=== PATIENT | male | born 1985 | race Caucasian/White ===

== ENCOUNTER 2017-04-19 11:00 | Emergency (ER) | payer OTHER ==
[2017-04-19] MEDS ORDERED: SODIUM CHLORIDE 1,000 ML IV STA (11:09)
--- NOTE | 2017-04-19 11:15 | PDOC ---
History of Present Illness - General Chief Complaint: Urinary Problem Stated Complaint: DARK URINE Time Seen by Provider: 04/19/17 11:08 - History of Present Illness Initial Comments: 04/19/17 11:29 Chief complaint: Dark urine History of present illness: Patient noticed [employer] colored urine after running a 15 mile race this morning. It was a humid day, and he was hydrating along the way with water. He runs 3 times a week, but much shorter distances. He has run this distance in the past, but has never had discoloration of his urine Review of systems: Denies fever/chills, back pain, dysuria, frequency, urgency, hesitancy, abdominal pain, chest pain, shortness of breath, nausea, vomiting, diarrhea, diaphoresis, testicular/ perineal pain, and remainder systems reviewed and found to be negative Past medical history: Patient is completely healthy, no prior hospitalizations or surgeries, no medication Family history: Father and brother with type 1 diabetes, otherwise negative including early coronary artery disease, metabolic diseases other than diabetes , cancer, kidney disease including polycystic kidneys and stones Social history: Occasional marijuana, occasional social alcohol, no tobacco or other street drugs. Works as a filmmaker. No environmental exposures Physical exam: Alert and oriented well-developed well-nourished no acute distress cheerful and cooperative Afebrile, vital signs normal No pallor or icterus. PERRLA, fundi benign, ENT clear Except without bruit mass or nodes Chest clear full breath sounds throughout bilaterally CV S1 and S2 normal without murmur rub or gallop pulses full and symmetric no JVD or edema no bruits Abdomen soft nontender without mass or organomegaly. Bowel sounds normal. Nondistended. No CVAT. No renal enlargement Extremities no CCE Skin clear, no rash, adequate turgor but mucous membranes somewhat dry Neurological C2 to 12 intact. No focal sensory or motor deficits. Strength full and symmetric. Gait stable and unimpaired. Reflexes 2+ symmetric Impression: Most likely this is benign hematuria as a result of exercise. Plan: Urinalysis, urine culture, CBC and chemistries, intravenous hydration, and observation. Further medical evaluation and treatment depending on results. Past History - Past Medical History Allergies/Adverse Reactions: Allergies Allergy/AdvReac Type Severity Reaction Status Date / Time No Known Allergies Allergy Verified 04/19/17 11:07 Home Medications: Ambulatory Orders NK [No Known Home Medication] 04/19/17 ED Treatment Course - LABORATORY CBC & Chemistry Diagram: 04/19/17 11:20 04/19/17 11:20 Medical Decision Making - Medical Decision Making 04/19/17 12:17 Laboratories reviewed: BUNs 26, creatinine 1.0, electrolytes are good. Urinalysis with blood, consistent with exercise-induced hematuria. No other abnormalities. No casts. Patient received 1 L of intravenous hydration. We'll continue oral hydration at home today. Advised to follow-up with his primary physician or to return to the ER if there are further symptoms. Fully ambulatory and in no pain or other distress, taking oral fluids well, upon discharge with his to follow-up as directed *DC/Admit/Observation/Transfer Diagnosis at time of Disposition: Benign hematuria - Discharge Dispostion Disposition: HOME Condition at time of disposition: Stable Admit: No - Referrals Referrals: Rustam Muhammad MD [Staff Physician] - - Patient Instructions Printed Discharge Instructions: DI for Hematuria
[2017-04-19 11:17] VITALS: BP 110/74; PULSE 81; TEMP 97.7; BMI 23.3
[2017-04-19 11:20] LABS: PH,URINE 8.5 (4.5-8); URINE BILIRUBIN 1+ (NEGATIVE); URINE GLUCOSE (UA) Negative (NEGATIVE); URINE KETONE 1+ (NEGATIVE); URINE LEUK ESTERASE Negative (NEGATIVE); URINE NITRITE Negative (NEGATIVE); URINE UROBILINOGEN 1.0 E.U/dl (0.2-1.0)
[2017-04-19 11:24] LABS: URINE APPEARANCE CLOUDY; URINE BLOOD 3+ (NEGATIVE); URINE COLOR YELLOW; URINE PROTEIN 2+ (NEGATIVE)
[2017-04-19 11:28] LABS: URINE RBC >100 /hpf (0-3)
[2017-04-19 11:30] LABS: URINE BACTERIA 1+ /hpf (NEGATIVE)
[2017-04-19 11:42] LABS: EOSINOPHIL 0.7 % (0-4.5); MCH 31.4 pg (25.7-33.7); MCHC 34.6 g/dl (32.0-35.9); MEAN CELL VOLUME 90.7 fl (80-96); MEAN PLT VOLUME 8.3 fl (7.5-11.1); NEUTROPHILS 72.1 % (42.8-82.8); PLATELET COUNT 208 K/MM3 (134-434); RDW 11.7 % (11.9-15.9); WHITE BLOOD COUNT 7.9 K/mm3 (4.0-10.8)
[2017-04-19 12:02] LABS: ALBUMIN 4.9 g/dl (3.5-5.0); ALK PHOS 41 U/L (32-92); ANION GAP 10 (8-16); BILIRUBIN,TOTAL 0.9 mg/dl (0.2-1.0); CALCIUM 9.6 mg/dl (8.4-10.2); CO2 29 mmol/L (22-28); GLUCOSE,RANDOM 104 mg/dl (74-106); SGOT/AST 25 U/L (10-42); SGPT/ALT 16 U/L (10-40); TOT PROT 6.9 g/dl (6.4-8.3)
== END 2017-04-19 12:31 | disposition home or self-care (01) ==
LOC: FER 11:00
PROC: 3E0337Z Introduction of Electrolytic and Water Balance Substance into Peripheral Vein, Percutaneous Approach (ICD-10-PCS; principal; 2017-04-19)
DX: N02.9 Recurrent and persistent hematuria with unspecified morphologic changes (principal)
CPT/HCPCS: 36415; 80053; 81003; 81015; 85025; 87086; 99283-25